=== PATIENT | female | born 1970 | race Caucasian/White ===

== ENCOUNTER 2017-09-08 08:38 | Emergency (ER) | payer BC ==
[2017-09-08] MEDS ORDERED: hydrOXYzine HCl 25 MG Tab PO ONE (08:58)
--- NOTE | 2017-09-08 09:06 | EDM.PDOC ---
ED HPI GENERAL MEDICAL PROBLEM - General Stated Complaint: CHEST PAIN Time Seen by Provider: 09/08/17 09:10 Source of Information: Reports: Patient - History of Present Illness INITIAL COMMENTS - FREE TEXT/NARRATIVE: Pt is brought into the ER this morning with a sudden onset of chest pressure severe neck tension. She states she's had a lot of increase in stress in her life lately. She does have a history of anxiety but does not ever recall having anxiety attack in the past. She was at home and developed the sudden onset of chest pressure about 7:30 this morning. Patient became sweaty and was having difficulty taking a deep breath. The chest pain was reproducible and she is able to palpate the area of discomfort. Patient does admit to drinking on average of 4-5 vodka and sprite drinks a day. Took baby asa 81mg prior to arrival Onset: Today Improves with: Reports: Rest Worsens with: Reports: Movement - Related Data Allergies Allergy/AdvReac Type Severity Reaction Status Date / Time clindamycin Allergy Airway Verified 09/08/17 09:05 Tightness Home Meds: Home Meds Aspirin 325 mg PO DAILY 09/08/17 [History] Furosemide [Lasix] 20 mg PO DAILY 09/08/17 [History] Gabapentin [Neurontin] 900 mg PO DAILY 09/08/17 [History] ED ROS GENERAL - Review of Systems Review Of Systems: See Below Constitutional: Reports: No Symptoms HEENT: Reports: No Symptoms Respiratory: Reports: No Symptoms, Pleuritic Chest Pain Cardiovascular: Reports: Chest Pain GI/Abdominal: Reports: No Symptoms Musculoskeletal: Reports: Muscle Pain Skin: Reports: No Symptoms Neurological: Reports: No Symptoms ED EXAM, GENERAL - Physical Exam Exam: See Below Exam Limited By: No Limitations General Appearance: Alert, WD/WN, No Apparent Distress Respiratory/Chest: No Respiratory Distress, Lungs Clear, Normal Breath Sounds, No Accessory Muscle Use, Chest Non-Tender Cardiovascular: Normal Peripheral Pulses, Regular Rate, Rhythm GI/Abdominal: Normal Bowel Sounds, Soft, Non-Tender Extremities: Normal Inspection, Normal Range of Motion, Normal Capillary Refill Neurological: Oriented, CN II-XII Intact, Normal Cognition, Normal Gait Skin Exam: Warm, Dry, Intact, Normal Color, No Rash Course - Vital Signs Last Recorded V/S: Last Vital Signs Temp 36.8 C 09/08/17 09:10 Pulse 782 H 09/08/17 09:10 Resp 16 09/08/17 09:10 BP 124/77 09/08/17 09:10 Pulse Ox 98 09/08/17 09:10 - Orders/Labs/Meds Orders: Active Orders 24 hr Category Date Time Status EKG Documentation Completion [RC] URGENT Care 09/08/17 08:58 Ordered Aspirin Med 09/09/17 08:00 Ordered 162 mg PO WITHBREAKFAST Medication Orders Aspirin (Aspirin) 162 mg PO WITHBREAKFAST CORRIE Labs: Laboratory Tests 09/08/17 09/08/17 09/08/17 Range/Units 09:09 09:09 09:09 WBC 6.3 (4.0-10.0) x10^3/uL RBC 3.95 L (4.00-5.50) x10^6/uL Hgb 13.7 (12.0-16.0) g/dL Hct 40.8 (33.0-47.0) % MCV 103.3 H (78.0-93.0) fL MCH 34.7 H (26.0-32.0) pg MCHC 33.6 (32.0-36.0) g/dL RDW Coeff of Domenic 11.9 (10.0-15.0) % Plt Count 225 (130-400) x10^3/uL Neut % (Auto) 56.5 (50.0-80.0) % Lymph % (Auto) 31.2 (25.0-50.0) % Rock % (Auto) 8.9 (2.0-11.0) % Eos % (Auto) 2.9 (0.0-4.0) % Baso % (Auto) 0.5 (0.2-1.2) % Sodium 144 (136-145) mmol/L Potassium 3.9 (3.5-5.1) mmol/L Chloride 106 (98-107) mmol/L Carbon Dioxide 29 (21-32) mmol/L BUN 19 H (7-18) mg/dL Creatinine 0.7 (0.55-1.02) mg/dL Est Cr Clr Drug Dosing 96.62 mL/min Estimated GFR (MDRD) > 60 Glucose 102 (74-106) mg/dL Calcium 8.7 (8.5-10.1) mg/dL Corrected Calcium 9.10 (8.5-10.1) mg/dL Total Bilirubin 0.3 (0.2-1.0) mg/dL AST 38 H (15-37) U/L ALT 52 (14-59) U/L Alkaline Phosphatase 61 (46-116) U/L POC Troponin I 0.00 (0.00-0.08) ng/mL Total Protein 6.6 (6.4-8.2) g/dL Albumin 3.5 (3.4-5.0) g/dL Globulin 3.1 Albumin/Globulin Ratio 1.13 Meds: Medications Generic Name Dose Route Start Last Admin Trade Name Freq PRN Reason Stop Dose Admin Aspirin 162 mg 09/09/17 08:00 Aspirin PO WITHBREAKFAST CORRIE Discontinued Medications Generic Name Dose Route Start Last Admin Trade Name Freq PRN Reason Stop Dose Admin Hydroxyzine HCl 25 mg 09/08/17 08:58 09/08/17 09:05 Atarax PO 09/08/17 08:59 25 mg ONETIME ONE Administration - Re-Assessments/Exams Free Text/Narrative Re-Assessment/Exam: 09/08/17 09:47 chest pain has resolved does not feel anxious any longer. muscle tension around the neck has resolved Departure - Departure Time of Disposition: 10:25 Disposition: Home, Self-Care 01 Condition: Good Clinical Impression: Anxiety, Pleuritic chest pain Instructions: Chest Wall Pain, [id number] Additional Instructions: 1. Rest 2. See PCP regarding longer term management regarding anxiety and increased stress 3. Return to the ER if symptoms arise again. 4. Diet and exercise as tolerated - My Orders Last 24 Hours: My Active Orders 09/08/17 08:58 EKG Documentation Completion [RC] URGENT 09/09/17 08:00 Aspirin 162 mg PO WITHBREAKFAST - Assessment/Plan Last 24 Hours: My Active Orders 09/08/17 08:58 EKG Documentation Completion [RC] URGENT 09/09/17 08:00 Aspirin 162 mg PO WITHBREAKFAST Plan: 1. EKG completed in ER. results discussed with the pt and spouse 2. Labs completed in ER. Results discussed with pt and spouse. 3. hydroxazine for anxiety symptoms 4. ASA 162mg. Pt took an 81mg at home prior to coming to ER
[2017-09-08 09:36] LABS: CHLORIDE,CL 106 mmol/L (98-107); SODIUM,NA 144 mmol/L (136-145)
[2017-09-09] MEDS ORDERED: Aspirin 81 MG Tab.Chew PO SCH (08:00)
== END 2017-09-08 10:20 | disposition home or self-care (01) ==
LOC: SUPCPDRO 08:38 → VM.ED 08:38
DX: R07.81 Pleurodynia (principal); F41.9 Anxiety disorder, unspecified; Z88.1 Allergy status to other antibiotic agents; Z79.82 Long term (current) use of aspirin; Z79.899 Other long term (current) drug therapy
CPT/HCPCS: 36415; 80053; 84484; 85025; 93005; 99285; A9270